=== PATIENT | female | born 1940 | race Caucasian/White ===

== ENCOUNTER 2020-05-21 11:08 | Inpatient (IN) ==
[2020-05-21] MEDS ORDERED: SODIUM CHLORIDE 0.9% 1,000 ML IV STA (11:25)
[2020-05-21 12:07] LABS: Basophils % 0.2 % (0.0-0.8); Eosinophils # 0.1 10*3/uL (0.0-0.87); Eosinophils % 1.2 % (0.00-10.9); Hematocrit 44.3 VOL% (35.7-47.0); Hemoglobin 14.7 GM/DL (12.0-16.0); Immature Granulocytes % 2.6 %; Immature Granulocytes Absolute 0.22 #; Lymphocytes # 0.8 10*3/uL (1.4-4.0); Lymphocytes % 9.4 % (21.3-54.2); Mean Corpuscular HGB Conc 33.2 GM/DL (32-36); Mean Corpuscular Volume 91.5 FL (87-102); Monocytes % 14.4 % (1.7-12.7); NRBC # 0.02 10*3/uL; Neutrophils % 72.2 % (38.7-73.9); Platelet Count 137 T/CUMM (130-400); Red Blood Count 4.84 MC/CUMM (3.8-5.5); Red Cell Distribution Width 14.7 % (9.3-17.3); White Blood Count 8.4 T/CUMM (4-12)
[2020-05-21 12:30] LABS: Anisocytosis Slight; Atypical Lymphocytes Few; Band Neutrophils 36 % (0-10); Eosinophils 1 % (0-10); Lymphocytes 15 % (20-55); Macrocytosis 1+; Metamyelocytes 1 %; Nucleated Red Blood Cells 2 (0-5); Platelet Estimate Adequate; Segmented Neutrophils 41 % (50-85); Total Cells Counted 100
[2020-05-21 12:31] LABS: Albumin 2.2 G/DL (3.4-5.0); Calcium 8.8 MG/DL (8.5-10.1); Osmolality,Calculated 280.7 MOS/KG (273-304); Total Protein 6.8 G/DL (6.4-8.3)
[2020-05-21 14:13] LABS: Bacteria,Urine Occasional /HPF (Few); Bilirubin,Urine Negative (Negative); Blood, Urine Small mg/dL (Negative); Glucose,Urine (UA) Negative (Negative); Ketones,Urine 5 mg/dL (Negative); Nitrite,Urine Negative (Negative); Protein,Urine Negative; RBC,Urine 5 /HPF (0-4); Squamous Epithelial Cell,Urine Occasional /HPF (0-10); Urine Appearance CLEAR (Clear); Urine Color Yellow (Yellow); Urine Specific Gravity 1.058 (1.001-1.035); Urine Urobilinogen < 2.0 EU/DL (0.2-1.0); WBC,Urine 2 /HPF (0-6)
[2020-05-21] MEDS ORDERED: MORPHINE 4 MG/1 ML VIAL ONE (14:38)
[2020-05-21] MEDS ORDERED: ONDANSETRON 4 MG/2 ML VIAL ONE (14:38)
[2020-05-21] MEDS ORDERED: ACETAMINOPHEN 325 MG TABLET PO PRN (15:55)
[2020-05-21] MEDS ORDERED: HYDROmorphone 2 MG/1 ML VIAL IV PRN (15:55)
[2020-05-21] MEDS ORDERED: GLUCAGON 1 MG VIAL IM PRN (15:55)
[2020-05-21] MEDS ORDERED: DEXTROSE 50% 25 GM/50 ML VIAL IV PRN (15:55)
[2020-05-21] MEDS ORDERED: ONDANSETRON 4 MG/2 ML VIAL IV PRN (15:55)
[2020-05-21 16:27] LABS: Thyroid Stimulating Hormone 4.3 uIU/ml (0.358-3.74); VLDL CHOLESTEROL 29.2 MG/DL
[2020-05-21] MEDS ORDERED: metroNIDAZOLE 500 MG/100 ML PREMIX IV ONE (16:41)
[2020-05-21] MEDS: CIPROFLOXACIN INJ 400 MG in PREMIX 1 EACH IV SCH (16:44)
[2020-05-21] MEDS: LACTATED RINGERS 1,000 ML IV SCH (17:03)
[2020-05-21] MEDS: metroNIDAZOLE INJ 500 MG in PREMIX 1 EACH IV SCH (17:06)
[2020-05-21] MEDS: ENOXAPARIN 40 MG/0.4 ML SYRINGE SUBCUT SCH (21:10)
[2020-05-22] MEDS: metroNIDAZOLE INJ 500 MG in PREMIX 1 EACH IV SCH ×3 (01:48→18:56)
[2020-05-22] MEDS: LACTATED RINGERS 1,000 ML IV SCH ×4 (03:45→22:41)
[2020-05-22] MEDS: CIPROFLOXACIN INJ 400 MG in PREMIX 1 EACH IV SCH ×2 (03:46→17:34)
[2020-05-22 05:45] LABS: Basophils # 0.1 10*3/uL (0.0-0.2); Eosinophils # 0.1 10*3/uL (0.0-0.87); Eosinophils % 1.4 % (0.00-10.9); Hematocrit 40.3 VOL% (35.7-47.0); Hemoglobin 13.4 GM/DL (12.0-16.0); Immature Granulocytes % 2.2 %; Lymphocytes # 0.7 10*3/uL (1.4-4.0); Lymphocytes % 7.5 % (21.3-54.2); Mean Corpuscular HGB Conc 33.3 GM/DL (32-36); Mean Platelet Volume 10.4 FL (9.6-12.0); Monocytes % 12.4 % (1.7-12.7); Neutrophils % 75.5 % (38.7-73.9); Platelet Count 148 T/CUMM (130-400); Red Blood Count 4.38 MC/CUMM (3.8-5.5); Red Cell Distribution Width 14.8 % (9.3-17.3); White Blood Count 9.2 T/CUMM (4-12)
[2020-05-22 06:12] LABS: Calcium 8.4 MG/DL (8.5-10.1); Osmolality,Calculated 283.4 MOS/KG (273-304)
[2020-05-22 06:15] LABS: Anisocytosis 2+; Band Neutrophils 45 % (0-10); Eosinophils 4 % (0-10); Lymphocytes 7 % (20-55); Macrocytosis 1+; Metamyelocytes 1 %; Myelocytes 1 %; Platelet Estimate Adequate; Segmented Neutrophils 28 % (50-85); Total Cells Counted 100
[2020-05-22 06:16] LABS: Atypical Lymphocytes Few
[2020-05-22] MEDS ORDERED: POTASSIUM CHLORIDE 20 MEQ TABLET PO ONE (09:00)
[2020-05-22] MEDS: SERTRALINE 50 MG TABLET PO SCH (10:57)
[2020-05-22] MEDS: PANTOPRAZOLE 40 MG TABLET PO SCH (10:57)
[2020-05-22] MEDS: ENOXAPARIN 40 MG/0.4 ML SYRINGE SUBCUT SCH (20:26)
[2020-05-23] MEDS: metroNIDAZOLE INJ 500 MG in PREMIX 1 EACH IV SCH ×3 (01:32→18:39)
[2020-05-23] MEDS: CIPROFLOXACIN INJ 400 MG in PREMIX 1 EACH IV SCH ×2 (03:20→16:00)
[2020-05-23 06:03] LABS: Basophils # 0.1 10*3/uL (0.0-0.2); Basophils % 0.7 % (0.0-0.8); Eosinophils # 0.2 10*3/uL (0.0-0.87); Eosinophils % 1.6 % (0.00-10.9); Hematocrit 38.5 VOL% (35.7-47.0); Hemoglobin 12.5 GM/DL (12.0-16.0); Immature Granulocytes % 3.3 %; Immature Granulocytes Absolute 0.44 #; Lymphocytes # 0.8 10*3/uL (1.4-4.0); Lymphocytes % 6.3 % (21.3-54.2); Mean Corpuscular HGB Conc 32.5 GM/DL (32-36); Mean Corpuscular Volume 92.8 FL (87-102); Mean Platelet Volume 10.3 FL (9.6-12.0); Monocytes % 9.3 % (1.7-12.7); Neutrophils % 78.8 % (38.7-73.9); Platelet Count 166 T/CUMM (130-400); Red Blood Count 4.15 MC/CUMM (3.8-5.5); Red Cell Distribution Width 15.4 % (9.3-17.3); White Blood Count 13.4 T/CUMM (4-12)
[2020-05-23 06:23] LABS: Albumin 1.7 G/DL (3.4-5.0); Bilirubin,Total 0.7 MG/DL (0.2-1.0); Calcium 8.5 MG/DL (8.5-10.1); Osmolality,Calculated 285.3 MOS/KG (273-304); Total Protein 5.4 G/DL (6.4-8.3)
[2020-05-23 07:16] LABS: Band Neutrophils 19 % (0-10); Hypochromasia 2+; Lymphocytes 5 % (20-55); Metamyelocytes 4 %; Platelet Estimate Normal; Segmented Neutrophils 62 % (50-85); Total Cells Counted 100
[2020-05-23] MEDS: SERTRALINE 50 MG TABLET PO SCH (08:20)
[2020-05-23] MEDS: PANTOPRAZOLE 40 MG TABLET PO SCH (08:20)
[2020-05-23] MEDS ORDERED: DILTIAZEM CD 120 MG CAPSULE PO SCH (13:02)
[2020-05-23] MEDS: METOPROLOL TARTRATE 25 MG TABLET PO SCH ×2 (13:41→20:55)
[2020-05-23] MEDS ORDERED: MAGNESIUM SULF RIDER 4 GM in PREMIX 1 EACH IV PRN (14:19)
[2020-05-23] MEDS ORDERED: MAGNESIUM SULF RIDER 2 GM in PREMIX 1 EACH IV PRN (14:19)
[2020-05-23] MEDS ORDERED: POTASSIUM CHLORIDE 20 MEQ TABLET PO PRN (14:20)
[2020-05-23] MEDS ORDERED: POTASSIUM CHLORIDE 20 MEQ TABLET PO ONE (14:21)
[2020-05-23] MEDS: LACTATED RINGERS 1,000 ML IV SCH ×2 (20:54→20:55)
[2020-05-23] MEDS: APIXABAN 5 MG TABLET PO SCH (20:55)
[2020-05-23] MEDS: ASCORBIC ACID 500 MG TABLET PO SCH (20:55)
[2020-05-24] MEDS: metroNIDAZOLE INJ 500 MG in PREMIX 1 EACH IV SCH (00:37)
[2020-05-24] MEDS ORDERED: METOPROLOL TARTRATE 5 MG/5 ML VIAL IV ONE (02:05)
[2020-05-24] MEDS: CIPROFLOXACIN INJ 400 MG in PREMIX 1 EACH IV SCH (04:59)
[2020-05-24] MEDS: dilTIAZem Drip 125 MG/125 ML PREMIX IV SCH (05:43)
[2020-05-24 05:57] LABS: Basophils # 0.1 10*3/uL (0.0-0.2); Basophils % 0.7 % (0.0-0.8); Eosinophils # 0.2 10*3/uL (0.0-0.87); Eosinophils % 1.1 % (0.00-10.9); Hematocrit 38.3 VOL% (35.7-47.0); Hemoglobin 12.6 GM/DL (12.0-16.0); Immature Granulocytes % 3.2 %; Immature Granulocytes Absolute 0.56 #; Lymphocytes % 5.8 % (21.3-54.2); Mean Corpuscular HGB Conc 32.9 GM/DL (32-36); Mean Corpuscular Volume 92.7 FL (87-102); Mean Platelet Volume 10.1 FL (9.6-12.0); Neutrophils % 82.2 % (38.7-73.9); Platelet Count 212 T/CUMM (130-400); Red Blood Count 4.13 MC/CUMM (3.8-5.5); Red Cell Distribution Width 15.3 % (9.3-17.3); White Blood Count 17.6 T/CUMM (4-12)
[2020-05-24 06:16] LABS: Calcium 8.2 MG/DL (8.5-10.1); Osmolality,Calculated 276.8 MOS/KG (273-304)
[2020-05-24 07:38] LABS: Band Neutrophils 30 % (0-10); Eosinophils 3 % (0-10); Lymphocytes 5 % (20-55); Metamyelocytes 2 %; Platelet Estimate Normal; Segmented Neutrophils 55 % (50-85); Total Cells Counted 100
[2020-05-24 07:39] LABS: Anisocytosis 1+; Macrocytosis 1+; Target Cells Few
[2020-05-24] MEDS: PANTOPRAZOLE 40 MG TABLET PO SCH (09:25)
[2020-05-24] MEDS: ASCORBIC ACID 500 MG TABLET PO SCH ×2 (09:25→21:34)
[2020-05-24] MEDS: LACTATED RINGERS 1,000 ML IV SCH ×2 (09:25→13:56)
[2020-05-24] MEDS: SERTRALINE 50 MG TABLET PO SCH (09:25)
[2020-05-24] MEDS: APIXABAN 5 MG TABLET PO SCH ×2 (09:26→21:34)
[2020-05-24] MEDS: METOPROLOL TARTRATE 25 MG TABLET PO SCH ×2 (09:26→21:35)
[2020-05-24] MEDS ORDERED: cefTRIAXone 2,000 MG in SYRINGE 1 EACH IV SCH (10:00)
[2020-05-24 10:15] LABS: Troponin I 0.024 NG/ML (0.00-0.045)
[2020-05-24 11:00] LABS: Troponin I 0.032 NG/ML (0.00-0.045)
[2020-05-24] MEDS: MEROPENEM 500 MG in SODIUM CHLORIDE 0.9% 100 ML IV SCH ×2 (11:22→16:58)
[2020-05-24] MEDS ORDERED: DILTIAZEM CD 120 MG CAPSULE PO SCH (21:00)
[2020-05-25] MEDS: MEROPENEM 500 MG in SODIUM CHLORIDE 0.9% 100 ML IV SCH ×3 (00:18→10:23)
[2020-05-25] MEDS: LACTATED RINGERS 1,000 ML IV SCH ×2 (04:35→10:23)
[2020-05-25 06:09] LABS: Basophils # 0.2 10*3/uL (0.0-0.2); Basophils % 0.9 % (0.0-0.8); Eosinophils # 0.2 10*3/uL (0.0-0.87); Eosinophils % 1.1 % (0.00-10.9); Hematocrit 37.8 VOL% (35.7-47.0); Hemoglobin 12.5 GM/DL (12.0-16.0); Immature Granulocytes % 2.8 %; Lymphocytes % 5.8 % (21.3-54.2); Mean Corpuscular HGB Conc 33.1 GM/DL (32-36); Mean Corpuscular Volume 93.3 FL (87-102); Monocytes % 6.9 % (1.7-12.7); Neutrophils % 82.5 % (38.7-73.9); Platelet Count 229 T/CUMM (130-400); Red Blood Count 4.05 MC/CUMM (3.8-5.5); Red Cell Distribution Width 15.4 % (9.3-17.3); White Blood Count 17.6 T/CUMM (4-12)
[2020-05-25] MEDS: dilTIAZem Drip 125 MG/125 ML PREMIX IV SCH (06:39)
[2020-05-25 06:42] LABS: Band Neutrophils 2 % (0-10); Lymphocytes 5 % (20-55); Platelet Estimate Normal; Segmented Neutrophils 87 % (50-85); Total Cells Counted 100
[2020-05-25 06:55] LABS: Albumin 1.4 G/DL (3.4-5.0); Bilirubin,Total 0.8 MG/DL (0.2-1.0); Calcium 8.1 MG/DL (8.5-10.1); Osmolality,Calculated 283.4 MOS/KG (273-304); Total Protein 5.1 G/DL (6.4-8.3)
[2020-05-25] MEDS: APIXABAN 5 MG TABLET PO SCH (08:49)
[2020-05-25] MEDS: ASCORBIC ACID 500 MG TABLET PO SCH (08:49)
[2020-05-25] MEDS: PANTOPRAZOLE 40 MG TABLET PO SCH (08:49)
[2020-05-25] MEDS: SERTRALINE 50 MG TABLET PO SCH (08:49)
[2020-05-25] MEDS: METOPROLOL TARTRATE 25 MG TABLET PO SCH (08:49)
[2020-05-25 12:48] LABS: Basophils # 0.1 10*3/uL (0.0-0.2); Basophils % 0.8 % (0.0-0.8); Eosinophils # 0.2 10*3/uL (0.0-0.87); Eosinophils % 1.3 % (0.00-10.9); Hematocrit 38.8 VOL% (35.7-47.0); Hemoglobin 12.7 GM/DL (12.0-16.0); Immature Granulocytes % 2.6 %; Immature Granulocytes Absolute 0.44 #; Lymphocytes # 0.9 10*3/uL (1.4-4.0); Lymphocytes % 5.4 % (21.3-54.2); Mean Corpuscular HGB Conc 32.7 GM/DL (32-36); Mean Corpuscular Volume 93.9 FL (87-102); Mean Platelet Volume 9.8 FL (9.6-12.0); Monocytes % 7.3 % (1.7-12.7); Neutrophils % 82.6 % (38.7-73.9); Platelet Count 245 T/CUMM (130-400); Red Blood Count 4.13 MC/CUMM (3.8-5.5); Red Cell Distribution Width 15.5 % (9.3-17.3); White Blood Count 16.7 T/CUMM (4-12)
[2020-05-25 13:31] VITALS: BP 114/60
[2020-05-25 15:52] LABS: Lymphocytes 3 % (20-55); Segmented Neutrophils 91 % (50-85); Total Cells Counted 100
== END 2020-05-25 15:00 | disposition home health service (06) | DRG 438 ==
LOC: N.ED 11:08 → N.EDINP 11:08 → N.3E 19:05 → N.TELES 05-24 03:16
PROVIDERS: ADMIT Internal Medicine; ATTEND Internal Medicine

== ENCOUNTER 2020-05-26 10:54 | Inpatient (IN) ==
[2020-05-26] MEDS ORDERED: DILTIAZEM 60 MG TABLET PO STA (11:41)
[2020-05-26 12:14] LABS: Basophils # 0.1 10*3/uL (0.0-0.2); Basophils % 0.5 % (0.0-0.8); Eosinophils # 0.1 10*3/uL (0.0-0.87); Eosinophils % 0.7 % (0.00-10.9); Hemoglobin 13.6 GM/DL (12.0-16.0); Lymphocytes % 6.6 % (21.3-54.2); Mean Corpuscular HGB Conc 32.4 GM/DL (32-36); Mean Corpuscular Volume 93.1 FL (87-102); Mean Platelet Volume 9.6 FL (9.6-12.0); Monocytes % 7.5 % (1.7-12.7); Neutrophils % 82.7 % (38.7-73.9); Platelet Count 306 T/CUMM (130-400); Red Blood Count 4.51 MC/CUMM (3.8-5.5); Red Cell Distribution Width 15.4 % (9.3-17.3); White Blood Count 14.8 T/CUMM (4-12)
[2020-05-26 12:36] LABS: Bilirubin,Total 0.6 MG/DL (0.2-1.0); Calcium 8.8 MG/DL (8.5-10.1); Osmolality,Calculated 281.5 MOS/KG (273-304); Total Protein 6.4 G/DL (6.4-8.3)
[2020-05-26 12:50] LABS: Bilirubin,Urine Negative (Negative); Blood, Urine Moderate mg/dL (Negative); Glucose,Urine (UA) Negative (Negative); Hyaline Casts,Urine 1 /LPF (0-3); Ketones,Urine 20 mg/dL (Negative); Mucus,Urine Occasional /LPF (Occasional); Nitrite,Urine Negative (Negative); Protein,Urine Negative; RBC,Urine 21 /HPF (0-4); Squamous Epithelial Cell,Urine Occasional /HPF (0-10); Urine Appearance CLOUDY (Clear); Urine Color Yellow (Yellow); Urine Specific Gravity 1.021 (1.001-1.035); Urine Urobilinogen < 2.0 EU/DL (0.2-1.0); WBC,Urine 1 /HPF (0-6)
[2020-05-26] MEDS ORDERED: ONDANSETRON 4 MG/2 ML VIAL IV PRN (13:12)
[2020-05-26] MEDS ORDERED: GLUCAGON 1 MG VIAL IM PRN (13:12)
[2020-05-26] MEDS ORDERED: DEXTROSE 50% 25 GM/50 ML VIAL IV PRN (13:12)
[2020-05-26] MEDS ORDERED: ACETAMINOPHEN 325 MG TABLET PO PRN (13:12)
[2020-05-26] MEDS ORDERED: POTASSIUM CHLORIDE INJ 10 MEQ in LACTATED RINGERS 1,000 ML IV SCH (13:30)
[2020-05-26] MEDS ORDERED: dilTIAZem Drip 125 MG/125 ML PREMIX IV SCH (13:30)
[2020-05-26] MEDS ORDERED: LEVOFLOXACIN 500 MG TABLET PO SCH (13:30)
[2020-05-26 13:43] LABS: Risk Ratio 5.8; Thyroid Stimulating Hormone 5.01 uIU/ml (0.358-3.74); VLDL CHOLESTEROL 21.6 MG/DL
[2020-05-26] MEDS: PANTOPRAZOLE 40 MG VIAL IV SCH (18:55)
[2020-05-26] MEDS: METOPROLOL TARTRATE 25 MG TABLET PO SCH (20:58)
[2020-05-26] MEDS: ASCORBIC ACID 500 MG TABLET PO SCH (20:58)
[2020-05-26] MEDS: APIXABAN 5 MG TABLET PO SCH (20:58)
[2020-05-26] MEDS ORDERED: DILTIAZEM CD 120 MG CAPSULE PO SCH (21:00)
[2020-05-27 06:36] LABS: Basophils # 0.1 10*3/uL (0.0-0.2); Basophils % 0.5 % (0.0-0.8); Eosinophils # 0.2 10*3/uL (0.0-0.87); Eosinophils % 1.2 % (0.00-10.9); Hematocrit 38.1 VOL% (35.7-47.0); Hemoglobin 12.4 GM/DL (12.0-16.0); Immature Granulocytes % 1.6 %; Lymphocytes # 0.8 10*3/uL (1.4-4.0); Lymphocytes % 6.8 % (21.3-54.2); Mean Corpuscular HGB Conc 32.5 GM/DL (32-36); Mean Corpuscular Volume 93.4 FL (87-102); Mean Platelet Volume 9.5 FL (9.6-12.0); Neutrophils % 81.9 % (38.7-73.9); Platelet Count 327 T/CUMM (130-400); Red Blood Count 4.08 MC/CUMM (3.8-5.5); Red Cell Distribution Width 15.6 % (9.3-17.3); White Blood Count 12.1 T/CUMM (4-12)
[2020-05-27 06:52] LABS: Calcium 8.3 MG/DL (8.5-10.1); Osmolality,Calculated 283.4 MOS/KG (273-304)
[2020-05-27 07:19] LABS: Band Neutrophils 3 % (0-10); Eosinophils 1 % (0-10); Lymphocytes 3 % (20-55); Platelet Estimate Adequate; Segmented Neutrophils 84 % (50-85); Total Cells Counted 100
[2020-05-27] MEDS ORDERED: NON-FORMULARY MEDICATION (Omeprazole 20 MG capsule,delayed release(DR/EC)) PO SCH (09:00)
[2020-05-27] MEDS: SERTRALINE 50 MG TABLET PO SCH (10:21)
[2020-05-27] MEDS: APIXABAN 5 MG TABLET PO SCH ×2 (10:21→21:00)
[2020-05-27] MEDS: METOPROLOL TARTRATE 25 MG TABLET PO SCH (10:21)
[2020-05-27] MEDS: ASCORBIC ACID 500 MG TABLET PO SCH ×2 (10:21→21:00)
[2020-05-27] MEDS: PANTOPRAZOLE 40 MG VIAL IV SCH (10:22)
[2020-05-27] MEDS: LACTATED RINGERS 1,000 ML IV SCH ×2 (16:35→18:44)
[2020-05-27] MEDS: DILTIAZEM CD 120 MG CAPSULE PO SCH (21:00)
[2020-05-28 06:02] LABS: Basophils # 0.1 10*3/uL (0.0-0.2); Basophils % 0.5 % (0.0-0.8); Eosinophils # 0.1 10*3/uL (0.0-0.87); Eosinophils % 1.4 % (0.00-10.9); Immature Granulocytes % 1.2 %; Immature Granulocytes Absolute 0.12 #; Lymphocytes # 0.8 10*3/uL (1.4-4.0); Lymphocytes % 8.1 % (21.3-54.2); Mean Corpuscular HGB Conc 32.4 GM/DL (32-36); Mean Corpuscular Volume 93.7 FL (87-102); Mean Platelet Volume 9.2 FL (9.6-12.0); Monocytes % 9.1 % (1.7-12.7); Neutrophils % 79.7 % (38.7-73.9); Platelet Count 315 T/CUMM (130-400); Red Blood Count 3.95 MC/CUMM (3.8-5.5); Red Cell Distribution Width 15.5 % (9.3-17.3); White Blood Count 10.4 T/CUMM (4-12)
[2020-05-28 06:23] LABS: Calcium 8.2 MG/DL (8.5-10.1); Osmolality,Calculated 281.3 MOS/KG (273-304)
[2020-05-28 06:30] LABS: Band Neutrophils 5 % (0-10); Eosinophils 3 % (0-10); Hypochromasia 1+; Lymphocytes 9 % (20-55); Segmented Neutrophils 73 % (50-85); Total Cells Counted 100
[2020-05-28 06:31] LABS: Microcytosis 1+
[2020-05-28] MEDS: APIXABAN 5 MG TABLET PO SCH ×2 (09:27→22:13)
[2020-05-28] MEDS: PANTOPRAZOLE 40 MG VIAL IV SCH (09:27)
[2020-05-28] MEDS: ASCORBIC ACID 500 MG TABLET PO SCH ×2 (09:27→22:12)
[2020-05-28] MEDS: SERTRALINE 50 MG TABLET PO SCH (09:27)
[2020-05-28] MEDS: LACTATED RINGERS 1,000 ML IV SCH (22:10)
[2020-05-28] MEDS: DILTIAZEM CD 120 MG CAPSULE PO SCH (22:13)
[2020-05-29 06:26] LABS: Basophils % 0.4 % (0.0-0.8); Eosinophils # 0.2 10*3/uL (0.0-0.87); Eosinophils % 1.7 % (0.00-10.9); Hematocrit 38.2 VOL% (35.7-47.0); Hemoglobin 11.8 GM/DL (12.0-16.0); Immature Granulocytes % 0.9 %; Immature Granulocytes Absolute 0.09 #; Lymphocytes # 0.8 10*3/uL (1.4-4.0); Mean Corpuscular HGB Conc 30.9 GM/DL (32-36); Mean Corpuscular Volume 95.5 FL (87-102); Monocytes % 8.7 % (1.7-12.7); Neutrophils % 80.3 % (38.7-73.9); Platelet Count 326 T/CUMM (130-400); Red Cell Distribution Width 15.3 % (9.3-17.3); White Blood Count 10.4 T/CUMM (4-12)
[2020-05-29 06:43] LABS: Calcium 8.3 MG/DL (8.5-10.1); Osmolality,Calculated 278.5 MOS/KG (273-304)
[2020-05-29 06:46] LABS: Band Neutrophils 7 % (0-10); Eosinophils 1 % (0-10); Hypochromasia 1+; Lymphocytes 7 % (20-55); Microcytosis 1+; Platelet Estimate Adequate; Segmented Neutrophils 80 % (50-85); Total Cells Counted 100
[2020-05-29] MEDS: APIXABAN 5 MG TABLET PO SCH ×2 (10:14→21:02)
[2020-05-29] MEDS: SERTRALINE 50 MG TABLET PO SCH (10:14)
[2020-05-29] MEDS: ASCORBIC ACID 500 MG TABLET PO SCH ×2 (10:14→20:59)
[2020-05-29] MEDS: PANTOPRAZOLE 40 MG VIAL IV SCH (10:14)
[2020-05-29] MEDS ORDERED: MEROPENEM 1,000 MG in SODIUM CHLORIDE 0.9% 100 ML IV SCH (12:00)
[2020-05-29] MEDS: MEROPENEM 500 MG in SODIUM CHLORIDE 0.9% 100 ML IV SCH ×3 (12:15→23:13)
[2020-05-29] MEDS: DILTIAZEM CD 120 MG CAPSULE PO SCH (20:59)
[2020-05-30] MEDS: LACTATED RINGERS 1,000 ML IV SCH (02:39)
[2020-05-30 05:49] LABS: Basophils # 0.1 10*3/uL (0.0-0.2); Basophils % 0.5 % (0.0-0.8); Eosinophils # 0.2 10*3/uL (0.0-0.87); Hematocrit 37.2 VOL% (35.7-47.0); Hemoglobin 11.6 GM/DL (12.0-16.0); Immature Granulocytes % 0.8 %; Immature Granulocytes Absolute 0.08 #; Lymphocytes # 0.9 10*3/uL (1.4-4.0); Lymphocytes % 8.9 % (21.3-54.2); Mean Corpuscular HGB Conc 31.2 GM/DL (32-36); Mean Corpuscular Volume 97.9 FL (87-102); Monocytes % 9.2 % (1.7-12.7); Neutrophils % 78.6 % (38.7-73.9); Platelet Count 346 T/CUMM (130-400); Red Cell Distribution Width 15.2 % (9.3-17.3); White Blood Count 10.2 T/CUMM (4-12)
[2020-05-30] MEDS: MEROPENEM 500 MG in SODIUM CHLORIDE 0.9% 100 ML IV SCH ×2 (05:55→12:35)
[2020-05-30 06:26] LABS: Albumin 1.6 G/DL (3.4-5.0); Bilirubin,Direct 0.12 MG/DL (0.0-0.20); Bilirubin,Indirect 1.1 MG/DL (0.0-1.0); Bilirubin,Total 1.2 MG/DL (0.2-1.0); Calcium 8.5 MG/DL (8.5-10.1); Osmolality,Calculated 283.1 MOS/KG (273-304); Total Protein 5.4 G/DL (6.4-8.3)
[2020-05-30] MEDS ORDERED: LEVOTHYROXINE 25 MCG TABLET PO SCH (06:30)
[2020-05-30] MEDS: APIXABAN 5 MG TABLET PO SCH (09:20)
[2020-05-30] MEDS: SERTRALINE 50 MG TABLET PO SCH (09:20)
[2020-05-30] MEDS: ASCORBIC ACID 500 MG TABLET PO SCH (09:20)
[2020-05-30] MEDS: PANTOPRAZOLE 40 MG VIAL IV SCH (09:21)
[2020-05-30 15:57] VITALS: BP 144/75
== END 2020-05-30 16:04 | disposition swing bed (61) | DRG 439 ==
LOC: N.ED 10:54 → SUATTDRO 13:07 → N.3E 13:07
PROVIDERS: ADMIT Internal Medicine; ATTEND Internal Medicine